=== PATIENT | female | born 1955 | race Caucasian/White ===

== ENCOUNTER 2024-08-06 13:03 | Inpatient (IN) | payer MEDICARE, SELFPAY ==
--- NOTE | ~2024-08-06 | CT_ITS ---
CLINICAL HISTORY: right flank pain CT abdomen and pelvis without contrast Comparison: None Findings: Small hiatal hernia. Hepatic steatosis. Atrophic pancreas with peripancreatic fat stranding at the pancreatic head. Cholecystectomy. No biliary duct dilatation. Spleen and adrenal glands are within normal limits. There is a small accessory splenule. No hydronephrosis or urolithiasis. No bowel obstruction, pneumoperitoneum, or pneumatosis. Pelvic contents unremarkable. Grade 1 anterolisthesis of L5 on S1 from bilateral pars defects. Degenerative changes of the spine. Ventral abdominal mesh. IMPRESSION: Peripancreatic fat stranding at the pancreatic head, concerning for acute interstitial pancreatitis. This document has been electronically signed by: Melly Moser MD on 08/06/2024 18:52:50
--- NOTE | ~2024-08-06 | XR_ITS ---
EXAMINATION: XR CHEST 1 VIEW HISTORY: fever, low o2 sat COMPARISON: There are no prior studies for comparison. FINDINGS: A single AP portable view of the chest performed at 9:43 AM is submitted. The lungs are expanded and clear. There is no pleural effusion, pneumothorax, or pulmonary vascular congestion. The heart is normal in size. There is degenerative disc disease of the spine. There are suture anchors in the right humeral head. XR/XR chest 1V IMPRESSION: Clear lungs. Electronically signed by: Beto Phipps MD 08/08/2024 10:03 AM EDT
--- NOTE | ~2024-08-06 | MR_ITS ---
EXAMINATION: MRI Abdomen without and with contrast HISTORY: pancreatitis COMPARISON: Correlation is made with a CT of the abdomen without contrast dated 08/06/2024. TECHNIQUE: Axial in and out of phase T1-weighted gradient echo, axial diffusion weighted, and axial and coronal HASTE T2 with fat saturation images were obtained through the abdomen. 3D MRCP Reconstructed and thin and thick slab images of the biliary tree were obtained. Subsequently, fat suppressed axial and coronal T1-weighted images were obtained after the intravenous administration of 9 mL Gadavist. FINDINGS: There is diffuse loss of signal intensity within the liver on opposed phase imaging, consistent with steatosis. No enhancing liver mass is identified. The hepatic and portal veins are patent. There is no intrahepatic biliary ductal dilatation. The patient is status post cholecystectomy. The common bile duct is normal in caliber. No intraluminal filling defects are identified to suggest choledocholithiasis. There is mild is infiltration of the peripancreatic fat in the region of the head, consistent with acute pancreatitis. No evidence of pancreatic necrosis. The pancreatic duct is not dilated. There is an 8 mm cystic structure in the pancreatic head which may represent an IPMN or tiny pseudocyst. There is no associated enhancement. No peripancreatic fluid collection is seen. The spleen and adrenals are unremarkable. There are tiny cysts in both kidneys. No retroperitoneal lymphadenopathy or ascites is identified in the upper abdomen. There is grade I-II spondylolisthesis of L5 on S1. MR/MR abdomen wo/w con IMPRESSION: 1. Findings consistent with acute interstitial pancreatitis involving the head as seen on CT. No peripancreatic fluid collection is seen. 2. Tiny 8 mm probable IPM and in the pancreatic head. Follow-up is recommended. 3. Hepatic steatosis. 4. No evidence of choledocholithiasis. Electronically signed by: Beto Phipps MD 08/07/2024 12:43 PM EDT
[2024-08-06 13:06] VITALS: BP 144/70; PULSE 78; RESP 18; TEMP 36.7; O2SAT 95; BMI 39.0
--- NOTE | 2024-08-06 13:13 | ED_ITS ---
HPI - General Adult General Chief complaint: Abdominal Pain Stated complaint: kidney pain Time Seen by Provider: 08/06/24 17:24 Source: patient Limitations: no limitations History of Present Illness ED Provider: Lenora Goldberg PA-C HPI narrative: 69-year-old female with a history of hypertension, hyperlipidemia, prediabetes, obesity, GERD, status post remote history of cholecystectomy, presents with the abdominal pain x1 day. Pain begins in her back, wraps around to upper abdomen, left greater than right. Unable to describe the nature of her discomfort, associated poor oral intake. Denies nausea, vomiting, fever. Denies dysuria, hematuria or history of kidney stones. Related Data Home Medications ?Medication ?Instructions ?Recorded ?Confirmed gabapentin 100 mg capsule 100 mg PO DAILY PRN pain 08/07/24 hydrochlorothiazide 25 mg tablet 25 mg PO DAILY 08/07/24 meloxicam 15 mg tablet 15 mg PO DAILY PRN pain 08/07/24 metoprolol succinate 25 mg 25 mg PO DAILY 08/07/24 tablet,extended release 24 hr paroxetine HCl 20 mg tablet 20 mg PO DAILY 08/07/24 Allergies Allergy/AdvReac Type Severity Reaction Status Date / Time aspirin Allergy Hives Verified 08/06/24 13:10 ciprofloxacin [From Cipro] Allergy Hives Verified 08/06/24 13:10 latex Allergy Hives Verified 08/06/24 13:10 Penicillins Allergy Difficulty Verified 08/06/24 13:10 Breathing Review of Systems 2 Review of Systems: Yes all other systems are reviewed and are negative Constitutional: Constitutional: Denies fatigue, Denies fever(s) and Reports poor appetite Cardiovascular: Cardiovascular: Denies chest pain and Denies dyspnea Respiratory: Respiratory: Denies cough and Denies dyspnea Gastrointestinal: Gastrointestinal: Reports abdominal pain, Denies nausea and Denies vomiting Genitourinary: Genitourinary: Denies hematuria, Denies dysuria and Denies flank pain Musculoskeletal: Musculoskeletal: Reports back pain Endocrine: Endocrine: Denies fatigue PMF Past Medical History Attestation statement: The following information was validated with the patient. Social History Social History Patient Tobacco Use Status: Never used Tobacco Smoked in Last 30 Days: No Use of substances other than those prescribed or required for medical reasons: No Advance Directives: No Advance Directives Information Provided: No Do you have a plan to hurt others: No Plan Nutrition Risks: No Nutritional Risk Physical Exam ED Vital Signs: Vital Signs - 24 hr 08/06/24 13:06 08/06/24 17:33 08/06/24 18:04 Temperature 98.0 F 97.6 F 97.8 F Pulse Rate 78 77 78 Respiratory Rate 18 16 18 Blood Pressure 144/70 H 159/81 H 156/78 H Pulse Oximetry 95 99 93 Oxygen Delivery Method Room Air Room Air Room Air 08/06/24 20:16 08/06/24 22:17 Temperature Pulse Rate 65 69 Respiratory Rate 11 L Blood Pressure 129/63 137/60 Pulse Oximetry 97 98 Oxygen Delivery Method Room Air Room Air BMI result Body Mass Index 39.0 Const Other: Alert Orientation/consciousness: patient oriented x3 Resp Effort & Inspection: normal respiratory effort Cardio Other: Normal peripheral perfusion GI Other: Abdomen is soft, nondistended, obese, moderate tenderness in upper abdomen, left greater than right, with mild involuntary guarding General: Yes no CVA tenderness Back/Spine/Pelvis Back: no CVA tenderness Skin Other: Warm dry no rash Neuro General: patient oriented x3, gait normal, no focal motor deficits and CN's II- XI intact bilaterally Psych Other: Cooperative Course Course Course Narrative: RME: 69-year-old female presents to ED for diffuse abdominal pain radiating down to her groin area. Patient states small amount of urine production. Patient denies history of UTI or kidney stones. Labs UA ordered Medications Administered Generic Name Dose Route Start Last Admin Trade Name Freq PRN Reason Stop Dose Admin Ceftriaxone Sodium 1 gm 08/06/24 23:30 08/07/24 00:15 Ceftriaxone Sodium 1 Gm Vial IVPUSH 1 gm Q24H SALAZAR Administration Hydromorphone HCl 0.5 mg 08/06/24 23:30 08/07/24 05:50 Hydromorphone Hcl 0.5 Mg/0.5 Ml Syringe IVPUSH 0.5 mg Q4H PRN Administration Breakthrough Pain Protocol Dextrose/Sodium Chloride 1,000 mls @ 100 mls/hr 08/06/24 23:30 08/07/24 00:17 D51/2ns IVCONT 100 mls/hr .Q10H SALAZAR Administration Metronidazole 500 mg in 100 mls @ 100 mls/hr 08/07/24 00:00 08/07/24 01:20 Flagyl IV Infused Q8H SALAZAR Infusion Sodium Chloride 3 ml 08/07/24 00:00 08/07/24 01:46 0.9 % Sodium Chloride Flush 3 Ml Syringe IVFLUSH Not Given QSHIFT SALAZAR Discontinued Medications Generic Name Dose Route Start Last Admin Trade Name Clyde PRN Reason Stop Dose Admin Sodium Chloride 1,000 mls @ 999 mls/hr 08/06/24 19:15 08/06/24 20:15 Ns IV 08/06/24 20:15 Infused .Q1H1M SALAZAR Infusion Morphine Sulfate 4 mg 08/06/24 19:01 08/06/24 19:13 Morphine Sulfate 4 Mg/Ml Cartridge IVPUSH 08/06/24 19:02 4 mg ONCE ONE Administration Protocol Morphine Sulfate 4 mg 08/06/24 22:14 08/06/24 22:36 Morphine Sulfate 4 Mg/Ml Cartridge IVPUSH 08/06/24 22:15 4 mg ONCE ONE Administration Protocol Ondansetron HCl 4 mg 08/06/24 22:48 08/06/24 23:17 Ondansetron Hcl 4 Mg/2 Ml Vial IVPUSH 08/06/24 22:49 4 mg ONCE ONE Administration Potassium Chloride 40 meq 08/06/24 22:48 08/06/24 23:17 Potassium Chloride Packet 20 Meq Packet PO 08/06/24 22:49 40 meq ONCE ONE Administration Medical Decision Making Medical Decision Making MDM Narrative: 69-year-old female with a history of hypertension, hyperlipidemia, prediabetes, obesity, GERD, status post remote history of cholecystectomy, presents with the abdominal pain x1 day. Pain begins in her back, wraps around to upper abdomen, left greater than right. Unable to describe the nature of her discomfort, associated poor oral intake. Denies nausea, vomiting, fever. Denies dysuria, hematuria or history of kidney stones. Problem: Age, prediabetes History: Per patient I have considered the following differential diagnoses: Choledocholithiasis, gastritis, pancreatitis, renal colic Plan: Given distribution of discomfort, I have considered underlying gastric versus pancreatic etiology as cause for symptoms. Choledocholithiasis is least likely, her cholecystectomy is remote, greater than 20 years. We will be obtaining a CT scan. Giving IV fluid and morphine for her discomfort. I also thought about renal colic, when patient presented to triage, the report seem to indicate right flank pain with radiation to the groin, however this is not the case. She also has no history and she has no related symptoms. UA was obtained in his unremarkable Labs: No leukocytosis, not anemic, potassium subtly low at 3.1, adding on a magnesium, LFTs are elevated, unclear what her baseline is, urine not infected CT abdomen and pelvis:Hepatic steatosis. Atrophic pancreas with peripancreatic fat stranding at the pancreatic head. Cholecystectomy. No biliary duct dilatation. Spleen and adrenal glands are within normal limits. There is a small accessory splenule. No hydronephrosis or urolithiasis. No bowel obstruction, pneumoperitoneum, or pneumatosis. Pelvic contents unremarkable. Grade 1 anterolisthesis of L5 on S1 from bilateral pars defects. Degenerative changes of the spine. Ventral abdominal mesh. IMPRESSION: Peripancreatic fat stranding at the pancreatic head, concerning for acute interstitial pancreatitis. Lab Data 08/07/24 05:13 08/07/24 05:13 Labs: Lab Results 08/06/24 Range/Units 13:48 WBC 8.6 (4.8-10.8) X10*3/uL RBC 4.63 (4.20-5.50) X10*6/uL Hgb 13.8 (12.0-16.0) g/dl Hct 41.4 (37.0-47.0) % MCV 89.4 (80.0-98.0) fL MCH 29.8 (27.0-33.0) pg MCHC 33.3 (31.0-35.0) g/dl RDW 13.9 (11.0-16.0) % Plt Count 226 (160-400) X10*3/uL MPV 11.1 (9.4-12.3) fL Immature Gran % (Auto) 0.3 (0.0-0.4) % Neut % (Auto) 70.1 (45-73) % Lymph % (Auto) 20.6 (20-40) % [place] % (Auto) 8.1 (2-11) % Eos % (Auto) 0.6 (0-4) % Baso % (Auto) 0.3 (0-2) % Lymph # (Auto) 1.8 (1.2-4.9) X10*3/uL [place] # (Auto) 0.7 (0.1-1.2) X10*3/uL Eos # (Auto) 0.1 (0.0-0.4) X10*3/uL Baso # (Auto) 0.0 (0.0-0.2) X10*3/uL Abs Immat Gran (auto) 0.03 (0.00-0.03) X10*3/uL Absolute Neuts (auto) 6.0 (2.0-8.3) x10*3/uL Absolute Nucleated RBC 0.000 (0.0-0.012) X10*3/uL Nucleated RBC % (auto) 0.0 (0.0-0.2) /100WBC PT 11.8 (10.9-12.4) SEC INR 1.0 (0.9-1.1) APTT 26.8 (26.0-36.8) SEC Sodium 141 (135-145) mmol/L Potassium 3.1 L (3.3-5.1) mmol/L Chloride 104 (96-108) mmol/L Carbon Dioxide 29 (22-29) mmol/L Anion Gap 11 L (12-20) BUN 11 (9-16) mg/dL Creatinine 0.73 (0.5-1.4) mg/dL Estim Creat Clear Calc 70.0 Estimated GFR > 60 Random Glucose 135 H (60-115) mg/dL Calcium 9.6 (8.4-10.2) mg/dL Magnesium 1.8 (1.6-2.6) mg/dL Total Bilirubin 1.1 H (0.0-1.0) mg/dL AST 56 H (5-31) U/L ALT 54 H (0-31) U/L Alkaline Phosphatase 124 H (39-117) U/L Troponin I High Sens 3.3 (<3.5-17.0) ng/L Total Protein 7.1 (6.5-8.0) g/dL Albumin 4.1 (3.5-5.0) g/dL Lipase 23 (8-78) U/L Urine Color Yellow Urine Appearance Clear Urine pH 8.5 (5.0-9.0) Ur Specific [place] 1.010 (1.005-1.025) Urine Protein Negative (Neg-Trace) mg/dL Urine Glucose (UA) Negative (Negative) mg/dL Urine Ketones Trace (Negative) mg/dL Urine Blood Negative (Negative) Urine Nitrite Negative (Negative) Ur Leukocyte Esterase Negative (Negative) Discharge Plan Discharge Clinical Impression: Acute hypokalemia Pancreatitis Qualifiers: Chronicity: acute Pancreatitis type: unspecified pancreatitis type Acute pancreatitis complication: unspecified Qualified Code(s): K85.90 - Acute pancreatitis without necrosis or infection, unspecified Patient Disposition: Admitted As Inpatient Interventions: Admission Worksheet (ED) Last Done: 08/07/24 06:37
--- NOTE | 2024-08-06 13:15 | ECG_ITS ---
Test Reason : ABD PAIN Blood Pressure : */* mmHG Vent. Rate : 73 BPM Atrial Rate : 73 BPM P-R Int : 134 ms QRS Dur : 90 ms QT Int : 422 ms P-R-T Axes : 17 -3 27 degrees QTcB Int : 464 ms Normal sinus rhythm Normal ECG No previous ECGs available Referred By: Salvador Vickers Electronically Signed By: Chu Ndiaye
[2024-08-06 13:51] LABS: MANUAL DIFF FLAG NO
[2024-08-06 13:54] LABS: Appearance Urine Clear; Basophils Percent Auto 0.3 % (0-2); Color Urine Yellow; Eosinophils Absolute Auto 0.1 X10*3/uL (0.0-0.4); Eosinophils Percent Auto 0.6 % (0-4); Glucose Urine UA Negative (Negative); Hematocrit 41.4 % (37.0-47.0); Hemoglobin 13.8 g/dl (12.0-16.0); Imm Gran Abs Auto 0.03 X10*3/uL (0.00-0.03); Imm Gran Pct Auto 0.3 % (0.0-0.4); Leukocyte Esterase Urine Negative (Negative); Lymphocytes Absolute Auto 1.8 X10*3/uL (1.2-4.9); Lymphocytes Percent Auto 20.6 % (20-40); Mean Corpuscular HGB Conc 33.3 g/dl (31.0-35.0); Mean Corpuscular Hemoglobin 29.8 pg (27.0-33.0); Mean Corpuscular Volume 89.4 fL (80.0-98.0); Mean Platelet Volume 11.1 fL (9.4-12.3); Monocytes Absolute Auto 0.7 X10*3/uL (0.1-1.2); Monocytes Percent Auto 8.1 % (2-11); Neutrophils Percent Auto 70.1 % (45-73); Nitrite Urine Negative (Negative); PH 8.5 (5.0-9.0); Platelet Count 226 X10*3/uL (160-400); Red Blood Count 4.63 X10*6/uL (4.20-5.50); Red Cell Distribution Width 13.9 % (11.0-16.0); Urine Blood Negative (Negative); Urine Ketones Trace mg/dL (Negative); Urine Protein Negative (Neg-Trace); White Blood Count 8.6 X10*3/uL (4.8-10.8)
[2024-08-06 14:01] LABS: Prothrombin Time 11.8 SEC (10.9-12.4)
[2024-08-06 14:04] LABS: Partial Thromboplastin Time 26.8 SEC (26.0-36.8)
[2024-08-06 14:14] LABS: Alanine Aminotransferase 54 U/L (0-31); Albumin Level 4.1 g/dL (3.5-5.0); Alkaline Phosphatase 124 U/L (39-117); Anion Gap 11 (12-20); Aspartate Amino Transferase 56 U/L (5-31); Bilirubin Total 1.1 mg/dL (0.0-1.0); Blood Urea Nitrogen 11 mg/dL (9-16); Calcium 9.6 mg/dL (8.4-10.2); Carbon Dioxide 29 mmol/L (22-29); Chloride 104 mmol/L (96-108); Estimated Glomerular Filt Rate > 60; Glucose Random 135 mg/dL (60-115); Potassium 3.1 mmol/L (3.3-5.1); Sodium 141 mmol/L (135-145); Total Protein 7.1 g/dL (6.5-8.0)
[2024-08-06 14:17] LABS: Troponin-I High Sensitivity 3.3 ng/L (<3.5-17.0)
[2024-08-06 17:33] VITALS: BP 159/81; PULSE 77; RESP 16; TEMP 36.4; O2SAT 99
--- NOTE | 2024-08-06 17:33 | PC.NURSE ---
a&ox4. vss and up to date pt presents to the ED c/o right sided flank pain radiating to across entire abdomen. pt reports nausea/nonbloody vomiting/chills x yesterday w/ associated decreased urine output. pt reports that it feels as if her bladder is not fully emptying. pt otherwise denies any diarrhea/urinary sx. pt also reports increased heavy lifting helping mother move. labs/urine obtained/sent to lab in triage. bladder scan obtained upon arrival to main ED displaying 59ml. pt seen by provider/aware of plan of care. pt pending CT to be completed at this time. on RA w/o difficulty. no sob/wob noted. respirations even/unlabored. plan of care ongoing. call [facility] placed within reach.
[2024-08-06 18:04] VITALS: BP 156/78; PULSE 78; RESP 18; TEMP 36.6; O2SAT 93
--- NOTE | 2024-08-06 18:17 | PC.NURSE ---
pt to CT at this time.
[2024-08-06] MEDS: 0.9 % Sodium Chloride 1,000 ML 999 ML IV (19:12)
[2024-08-06] MEDS: Morphine Sulfate 4 MG/ML CARTRIDGE IVPUSH ×2 (19:13→22:36)
[2024-08-06 19:31] LABS: Lipase 23 U/L (8-78)
--- NOTE | 2024-08-06 19:51 | PC.NURSE ---
this rn assumed care of pt, pt resting in stretcher, no acute distress noted. pt offers no complaints at this time.
[2024-08-06 20:16] VITALS: BP 129/63; PULSE 65; O2SAT 97
--- OUTSIDE RECORDS SUMMARY | 2024-08-06 21:23 | XMS_ITS | Continuity of Care Document ---
Author Organization [facility] Address [address] [address] Phone Care Team Providers Care Silver Wrapper Name Role Phone Nick Cedillo MD Unavailable Unavailable Allergies, Adverse Reactions, Alerts Substance Reaction Status Criticality vancomycin Active No Information PENICILLIN Active No Information latex Active No Information CIPROFLOXACIN HCL Active No Informa tion ciprofloxacin Active No Information Medications Medication Instructions Dosage Effective Dates (start - stop) Status Comments MELOXICAM (unknown strength) Not Available - Active BUPROPION HCL (unknown strength) Not Available - Active BIOTIN (unknown strength) Not Available - Active FOLIC ACID (unknown strength) Not Available - Active VITAMIN D3 (unknown strength) Not Available - Active BUPROPION HCL (unknown strength) Not Available - Active Procedures Procedure Date EYE EXAM, NEW PATIENT REFRACTION EYE EXAM WITH PHOTOS TOBACCO NON-USER Advance Directives Directive Yes / No Effective Date File Name No Information Encounters Encounter Description Practice Location Reason(s) For Visit Diagnoses Date Provider Providers Copied on Encounter [facility], [address] [facility], [place], [place], [id number], [place] tel:[phone] [facility] New patient medical exam (chief complaint) Age-related nuclear cataract, bilateralOpen angle with borderline findings, low risk, bilateral Jun- 9 Mamadou Romero. [address] [facility], [place], [place], [id number] , [place]. tel:[phone] Family History Family Member Type Diagnosis Age At Onset Mother Problem (finding) Diabetes mellitus Mother Problem (finding) glaucoma Mother Problem (finding) hypertension Payers Payer name Insurance type Covered alliance party ID Authoriza phuong(johnny Sabillon [id number] Social History Type Description Quantity Date Captured Comments Alcohol Use Details Unknown Caffeine Use Details Unknown Tobacco Use Status Current non-smoker 19 Smoking Status Never smoker Non-Smoking Tobacco Use Details : No Details Available : No Details Available Sex Female Chief Complaint And Reason For Visit From encounter dated '07/05/2018 13:30'. New patient medical exam (chief complaint). Description: 63 year old female presents today for a medical eye exam. Patient has not had a complete eye exam since two years ago and she obtained her current bifocal lens glasses, however, she has noted a slight gradual progression in her distant clarity OU, OS > OD , especially with driving at night with glare for the lastone year. History of floaters OU for years without progression. No flashes, diplopia or ocular pain. She has worn contact lenses in the past and may be interested in being updated for them or she would like to know about possibly having a Lasik Consult?? She is not using artificial tears OU. Familyhistory of Glaucoma, Mother. Reason For Referral Reason For Referral No Information History Of Present Illness Encounter Date Complaint History Of Prese nt Illness New patient medical exam 63 year old female presents today for a medical eye exam. Patient has not had a complete eye exam since two years ago and she obtained her current bifocal lens glasses, however, she has noted a slight gradual progression in her distant clarity OU, OS > OD , especially with driving at night with glare for the last one year. History of floaters OU for years without progression. No flashes, diplopia or ocular pain. She has worn contact lenses in the past and may be interested in being updated for them or she would like to know about possibly having a Lasik Consult?? She is not using artificial tears OU. Family history of Glaucoma, Mother. Functional Status Date Functional Assessmen t No Information Instructions Date Instruction Additional Infor eduardaion ME 1 yr Related to Age-r elated nuclear cataract, bilateral Impression/Plan Related to Age-r elated nuclear cataract, bilateral Impression/Plan Related to Open angle with borderline findings, low risk, bilateral Assessments Type Assessment Date assessment Age-related nuclear cataract, bi lateral impression Age-related nuclear cataract, bi lateral: H25.13 assessment Open angle with borderline findi ngs, low risk, bilateral impression Open angle with bord imer findings, low risk, bilateral: H40.013. Positive family history (Mother). IOP is WNL. Mild cup to disk asymmetry but appears WNL Patient Care Teams Name Effective Dates (start - stop) Status Members No Information
[2024-08-06 22:17] VITALS: BP 137/60; PULSE 69; RESP 11; O2SAT 98
[2024-08-06] MEDS: ondansetron HCL 4 MG/2 ML VIAL IVPUSH (23:17)
[2024-08-06] MEDS: Potassium Chloride Packet 20 MEQ PACKET 40 MEQ PO (23:17)
[2024-08-06 23:18] LABS: Magnesium 1.8 mg/dL (1.6-2.6)
--- NOTE | 2024-08-06 23:33 | PM.IMHP ---
History of Present Illness Date of Service: 08/06/24 Chief Complaint: abdominal pain 69-year-old female with a past medical history of HTN, HLD, anxiety, depression presented to the hospital today with a chief complaint of abdominal pain. Patient reported that since yesterday she has been having abdominal pain, starts around the back and radiates to the front to the epigastrium. Has been having nausea and vomiting. Denies any diarrhea. Reports she has had an episode of fever yesterday. Patient denies any chest pain or palpitations at the time of my interview. Denies any urinary symptoms. Reports that she has abdominal pain but slightly better than yesterday. Denies any numbness tingling or focal weakness. Review of all other systems is negative except mentioned above Patient denies any toxic habits except for a very occasional alcohol use. Denies any recent alcohol use. ER course: Per ER team, patient noted epigastric tenderness; lipase is normal limits; CT abdomen pelvis shows findings concerning for pancreatitis. Also noted a slightly elevated liver enzymes. PMFSH Social History Smoked in Last 30 Days: No Use of substances other than those prescribed or required for medical reasons: No Advance Directives: No Advance Directives Information Provided: No Do you have a plan to hurt others: No Plan Meds Allergies Allergy/AdvReac Type Severity Reaction Status Date / Time aspirin Allergy Hives Verified 08/06/24 13:10 ciprofloxacin [From Cipro] Allergy Hives Verified 08/06/24 13:10 latex Allergy Hives Verified 08/06/24 13:10 Penicillins Allergy Difficulty Verified 08/06/24 13:10 Breathing Active Medications: Current Medications Hydromorphone HCl (Hydromorphone Hcl 0.5 Mg/0.5 Ml Syringe) 0.5 mg IVPUSH Q4H PRN; Protocol PRN Reason: Breakthrough Pain Dextrose/Sodium Chloride (D51/2ns) 1,000 mls @ 100 mls/hr IVCONT .Q10H ASLAZAR Physical Exam Vital Signs and Narrative: Vital Signs: Last Vital Signs Temp 97.8 F 08/06/24 18:04 Pulse 69 08/06/24 22:17 Resp 11 L 08/06/24 22:17 BP 137/60 08/06/24 22:17 Pulse Ox 98 08/06/24 22:17 O2 Del Method Room Air 08/06/24 22:17 BMI result Body Mass Index 39.0 Gen: Appears be in no acute distress HEENT: NCAT, Moist mucosa. Pulmonary: Vesicular breath sounds, fair air entry CVS: Normal S1-S2 Abdomen: BS+, Soft, Tender in the epigastrium, no guarding no rigidity Extremities: Warm well perfused Neuro: Alert and awake. Results Labs 08/06/24 13:48 08/06/24 13:48 Labs: Laboratory Results - last 24 hr 08/06/24 13:48 MCV 89.4 MCH 29.8 MCHC 33.3 RDW 13.9 Plt Count 226 MPV 11.1 Immature Gran % (Auto) 0.3 Neut % (Auto) 70.1 Lymph % (Auto) 20.6 [place] % (Auto) 8.1 Eos % (Auto) 0.6 Baso % (Auto) 0.3 Lymph # (Auto) 1.8 [place] # (Auto) 0.7 Eos # (Auto) 0.1 Baso # (Auto) 0.0 Abs Immat Gran (auto) 0.03 Absolute Neuts (auto) 6.0 Absolute Nucleated RBC 0.000 Nucleated RBC % (auto) 0.0 PT 11.8 INR 1.0 APTT 26.8 Anion Gap 11 L Estim Creat Clear Calc 70.0 Estimated GFR > 60 Random Glucose 135 H Calcium 9.6 Magnesium 1.8 Total Bilirubin 1.1 H AST 56 H ALT 54 H Alkaline Phosphatase 124 H Total Protein 7.1 Albumin 4.1 Lipase 23 Urine Color Yellow Urine Appearance Clear Urine pH 8.5 Ur Specific [place] 1.010 Urine Protein Negative Urine Glucose (UA) Negative Urine Ketones Trace Urine Blood Negative Urine Nitrite Negative Ur Leukocyte Esterase Negative Assessment and Plan (1) Pancreatitis: Qualifiers: Pancreatitis type: unspecified pancreatitis type Acute pancreatitis complication: unspecified Chronicity: acute Qualified Code(s): K85.90 - Acute pancreatitis without necrosis or infection, unspecified Status: Acute Plan 69-year-old female with a past medical history of HTN, HLD, anxiety, depression presented to the hospital today with a chief complaint of abdominal pain. noted acute pancreatitis. Acute pancreatitis: Patient denies any alcohol use. Calcium within normal limits. Patient has prior history of cholecystectomy. No biliary ductal dilatation on the current CT scan. CT abdomen pelvis showed atrophic pancreas with peripancreatic fat stranding at the pancreatic head concerning for acute interstitial pancreatitis. Will obtain MRI abdomen Lipid panel Pain control GI consult patient's home medication hydrochlorothiazide could be contributory-will hold Transaminitis: Patient does report having an episode of fever last night. Will empirically cover with ceftriaxone and Flagyl until MRI Follow-up cultures Trend liver enzymes We will also obtain acute hepatitis panel hypertension: Continue home metoprolol DVT prophylaxis: SubQ heparin Code status: Full code Quality Stroke Does the patient have a stroke diagnosis?: No VTE Prior VTE?: No VTE Risk Level:: Medical - moderate - high VTE Device Contraindication: Treatment Not Indicated VTE Drug Contraindication: N/A - Med Ordered
[2024-08-07] MEDS: cefTRIAXone sodium 1 GM VIAL IVPUSH (00:15)
[2024-08-07] MEDS: Dextrose 5 % and 0.45 % NaCl 1,000 ML 100 ML IVCONT ×2 (00:17→09:03)
[2024-08-07] MEDS: metroNIDAZOLE/NS 500 MG/100 ML PIGGYBACK 100 MG IV ×2 (00:19→09:03)
[2024-08-07 00:59] VITALS: BP 104/50; PULSE 75; RESP 16; TEMP 36.3; O2SAT 93
[2024-08-07 04:24] VITALS: BP 102/42; PULSE 72; RESP 16; TEMP 36.3; O2SAT 96
[2024-08-07 05:24] LABS: MANUAL DIFF FLAG NO
[2024-08-07 05:30] LABS: Basophils Percent Auto 0.4 % (0-2); Eosinophils Absolute Auto 0.2 X10*3/uL (0.0-0.4); Eosinophils Percent Auto 2.4 % (0-4); Hematocrit 34.8 % (37.0-47.0); Hemoglobin 11.6 g/dl (12.0-16.0); Imm Gran Abs Auto 0.03 X10*3/uL (0.00-0.03); Imm Gran Pct Auto 0.4 % (0.0-0.4); Lymphocytes Absolute Auto 1.7 X10*3/uL (1.2-4.9); Lymphocytes Percent Auto 24.1 % (20-40); Mean Corpuscular HGB Conc 33.3 g/dl (31.0-35.0); Mean Corpuscular Hemoglobin 30.1 pg (27.0-33.0); Mean Corpuscular Volume 90.2 fL (80.0-98.0); Mean Platelet Volume 11.2 fL (9.4-12.3); Monocytes Absolute Auto 0.9 X10*3/uL (0.1-1.2); Monocytes Percent Auto 13.1 % (2-11); Neutrophils Absolute Auto 4.2 x10*3/uL (2.0-8.3); Neutrophils Percent Auto 59.6 % (45-73); Platelet Count 204 X10*3/uL (160-400); Red Blood Count 3.86 X10*6/uL (4.20-5.50); Red Cell Distribution Width 14.3 % (11.0-16.0); White Blood Count 7.1 X10*3/uL (4.8-10.8)
[2024-08-07 05:49] LABS: Albumin Level 3.3 g/dL (3.5-5.0); Alkaline Phosphatase 136 U/L (39-117); Anion Gap 11 (12-20); Aspartate Amino Transferase 217 U/L (5-31); Bilirubin Total 1.2 mg/dL (0.0-1.0); Blood Urea Nitrogen 12 mg/dL (9-16); Calcium 8.8 mg/dL (8.4-10.2); Carbon Dioxide 27 mmol/L (22-29); Chloride 109 mmol/L (96-108); Cholesterol 119 mg/dL (<200); Estimated Glomerular Filt Rate > 60; Glucose Random 114 mg/dL (60-115); HDL Cholesterol 59 mg/dL (>40); LDL Cholesterol Calculated 49 mg/dL (<100); Potassium 3.3 mmol/L (3.3-5.1); Sodium 144 mmol/L (135-145); Triglycerides 56 mg/dL (<150)
[2024-08-07 05:50] VITALS: RESP 18
[2024-08-07] MEDS: HYDROmorphone HCl 0.5 MG/0.5 ML SYRINGE IVPUSH ×2 (05:50→17:10)
[2024-08-07 06:03] LABS: HBc Num1 0.06 S/CO (0.00-0.79); HBsAGNum1 0.28 S/CO (0.00-0.99); Hepatitis A Antibody IgM 0.18 Index (0-0.79); Hepatitis B Core Antibody Nonreactive (Nonreactive); Hepatitis B Surface Antigen Negative (Negative); ~HepC Num1 0.06 S/CO (0.00-0.79); ~Hepatitis A Antibody IgM Nonreactive (Nonreactive); ~Hepatitis B Surface Antibody NONREACTIVE (Nonreactive); ~Hepatitis C Antibody Nonreactive (Nonreactive)
[2024-08-07 08:03] LABS: Alanine Aminotransferase 138 U/L (0-31)
[2024-08-07 09:02] VITALS: BP 101/59; PULSE 80; RESP 18; TEMP 36.5; O2SAT 93
[2024-08-07] MEDS: Docusate Sodium 100 MG CAPSULE PO ×2 (09:06→20:21)
[2024-08-07] MEDS: Heparin Sodium,Porcine 5,000 UNIT/ML VIAL 5000 UNIT SUBCUT ×2 (09:08→17:06)
--- NOTE | 2024-08-07 10:35 | PHA.MEDREC ---
Addendum entered by Lashawn Mi RPh 08/07/24 11:06: reviewed by [facility]. Original Note: Pharmacy Consult ? Medication Reconciliation Pharmacy has completed the medication reconciliation. Spoke to patent to confirm med list. Patient had a list of medications on her phone. Patient states she is no longer taking HCTZ 25 mg. Patient says she is taking Atrovastatin 20 mg daily ,however i do see any claims for. Patient states she is from [place] and she uses [facility] or [facility] for her medications.
[2024-08-07] MEDS: gadobutroL 10 ML VIAL IVPUSH (12:17)
--- NOTE | 2024-08-07 12:53 | CONS_ITS ---
DATE OF SERVICE: 08/07/2024 REFERRING PHYSICIAN: Dr. Keen REASON FOR CONSULTATION: Pancreatitis. HISTORY OF PRESENT ILLNESS: The patient is a pleasant 69-year-old woman who was admitted to the hospital after presenting to the emergency room with abdominal pain. The symptoms began the day before admission with epigastric pain radiating into the back and sides. There was associated nausea and vomiting. She had a subjective fever and presented to the emergency room. She denies any recent unusual ingestions or prior history of pancreatitis. She does not drink alcohol. She is status post cholecystectomy approximately 20 to 25 years ago. Evaluation in the emergency department was remarkable for mild elevation of her liver function tests. Lipase was normal. CT imaging showed a normal common bile duct and changes consistent with pancreatitis involving the pancreatic head. She is scheduled for MRI imaging. PAST MEDICAL HISTORY: 1. Hypertension. 2. Hyperlipidemia. 3. Anxiety/depression. 4. Cholecystectomy. 5. Appendectomy. 6. section. CURRENT MEDICATIONS: Her current medication list is reviewed in the chart. ALLERGIES: THERE ARE MULTIPLE MEDICATION ALLERGIES, WHICH ARE REVIEWED. FAMILY HISTORY: This is reviewed with the patient and is noncontributory. SOCIAL HISTORY: There is no current tobacco, alcohol, or substance abuse. REVIEW OF SYSTEMS: SKIN: No pruritus. HEENT: Negative. CARDIOPULMONARY: No shortness of breath or chest pain. GASTROINTESTINAL: As above. GENITOURINARY: Negative. NEUROPSYCHIATRIC: Negative. PHYSICAL EXAMINATION: GENERAL: Shows a pleasant female, lying comfortably in bed. VITAL SIGNS: Reviewed in electronic medical record and are stable. SKIN: Anicteric. HEENT: Shows no scleral icterus. NECK: Without lymphadenopathy or thyromegaly. LUNGS: Clear. HEART: Shows regular rate and rhythm. S1, S2. No murmur. ABDOMEN: Soft. There is tenderness to palpation in the epigastric and left upper quadrant area. EXTREMITIES: Without edema. LABORATORY STUDIES AND IMAGING STUDIES: Reviewed. IMPRESSION: Abdominal pain with changes of pancreatitis on imaging. The etiology for this is not clear. She has remote history of cholecystectomy, which would make primary common bile duct stones less likely, although possible and agreed with obtaining an MRI for further evaluation. She had been on hydrochlorothiazide and I agree with discontinuing this as this can be associated with pancreatitis. I agree treating her with pain medications, antiemetics, and IV fluids and her diet can be gradually advanced as she improves. We will await the results of MR imaging. Thanks for asking me to see her. I will follow her in the hospital with you. MD CLAUDINE Kulkarni/YUSEF / [id number]
--- NOTE | 2024-08-07 13:34 | MHC.CM.PN ---
PT LIVES WITH IN [place] THEY WERE HERE TAKING CARE OF HER MOTHER PT IS INDEPENDENT DC PLAN HOME N/S
--- NOTE | 2024-08-07 14:39 | P.PNIM_ITS ---
Subjective Subjective Date of Service: 08/07/24 Review of Systems Follow up pancreatitis No nausea, vomiting, diarrhea Still with abdominal pain Physical Exam 2 Vital Signs: Vital Signs: Last Vital Signs Temp 97.7 F 08/07/24 09:02 Pulse 80 08/07/24 09:02 Resp 18 08/07/24 09:02 BP 101/59 L 08/07/24 09:02 Pulse Ox 93 08/07/24 09:02 O2 Del Method Room Air 08/07/24 09:02 BMI result Body Mass Index 39.0 Appearing in no acute distress lung sounds are clear to auscultation heart regular rate rhythm, clear S1, S2 positive bowel sounds, abdomen is soft, tender to left upper quadrant neuro patient is alert x3, no focal deficits Objective Data Active Medications Calcium Carbonate (Calcium Carbonate 750 Mg Tab.Chew) 750 mg PO Q4H PRN PRN Reason: Heartburn Ceftriaxone Sodium (Ceftriaxone Sodium 1 Gm Vial) 1 gm IVPUSH Q24H [facility] Last Admin: 08/07/24 00:15 Dose: 1 gm Documented By: JOSE CARLOS Docusate Sodium (Docusate Sodium 100 Mg Capsule) 100 mg PO BID [facility] Last Admin: 08/07/24 09:06 Dose: 100 mg Documented By: MAREK Heparin Sodium (Porcine) (Heparin Sodium,Porcine 5,000 Unit/Ml Vial) 5,000 unit SUBCUT Q8H [facility] Last Admin: 08/07/24 09:08 Dose: 5,000 unit Documented By: MAREK Hydromorphone HCl (Hydromorphone Hcl 0.5 Mg/0.5 Ml Syringe) 0.5 mg IVPUSH Q4H PRN; Protocol PRN Reason: Breakthrough Pain Last Admin: 08/07/24 05:50 Dose: 0.5 mg Documented By: JOSE CARLOS Dextrose/Sodium Chloride (D51/2ns) 1,000 mls @ 100 mls/hr IVCONT .Q10H [facility] Last Admin: 08/07/24 09:03 Dose: 100 mls/hr Documented By: MAREK Metronidazole (Flagyl) 500 mg in 100 mls @ 100 mls/hr IV Q8H [facility] Last Infusion: 08/07/24 10:04 Dose: Infused Documented By: MAREK Magnesium Hydroxide (Milk Of Magnesia 30 Ml Oral.Susp) 30 ml PO DAILY PRN PRN Reason: Constipation Melatonin (Melatonin 3 Mg Tablet) 6 mg PO BEDTIME PRN PRN Reason: Insomnia Senna (Sennosides 8.6 Mg Tablet) 17.2 mg PO BEDTIME [facility] Sodium Chloride (0.9 % Sodium Chloride Flush 3 Ml Syringe) 3 ml IVFLUSH QSHIFT [facility] Last Admin: 08/07/24 08:59 Dose: Not Given Documented By: MAREK Non-Admin Reason: IV Running Labs 08/07/24 05:13 08/07/24 05:13 Labs: Laboratory Results - last 24 hr 08/06/24 08/07/24 13:48 05:13 MCV 90.2 MCH 30.1 MCHC 33.3 RDW 14.3 Plt Count 204 MPV 11.2 Immature Gran % (Auto) 0.4 Neut % (Auto) 59.6 Lymph % (Auto) 24.1 Banks % (Auto) 13.1 H Eos % (Auto) 2.4 Baso % (Auto) 0.4 Lymph # (Auto) 1.7 Banks # (Auto) 0.9 Eos # (Auto) 0.2 Baso # (Auto) 0.0 Abs Immat Gran (auto) 0.03 Absolute Neuts (auto) 4.2 Absolute Nucleated RBC 0.000 Nucleated RBC % (auto) 0.0 Anion Gap 11 L Estim Creat Clear Calc 70.0 Estimated GFR > 60 Random Glucose 114 Calcium 8.8 D Magnesium 1.8 Total Bilirubin 1.2 H AST 217 H ALT 138 H Alkaline Phosphatase 136 H Total Protein 6.0 L Albumin 3.3 L Triglycerides 56 Cholesterol 119 LDL Cholesterol, Calc 49 HDL Cholesterol 59 Lipase 23 Hepatitis A IgM Ab Nonreactive Hep Bs Antigen Negative Hep Bs Antibody NONREACTIVE Hep B Core Total Ab Nonreactive Hepatitis C Ab (EIA) Nonreactive Assessment and Plan (1) Pancreatitis: Status: Acute Plan 69-year-old female with a past medical history of HTN, HLD, anxiety, depression presented to the hospital today with a chief complaint of abdominal pain. noted acute pancreatitis. Acute pancreatitis Patient denies any alcohol use. Calcium within normal limits. Patient has prior history of cholecystectomy. No biliary ductal dilatation on the current CT scan. Abdominal MRI showing acute interstitial pancreatitis, hepatic steatosis with no evidence of choledocholithiasis Lipid panel wnl Pain control IV fluids Clear diet GI consult> treat symptomatically patient's home medication hydrochlorothiazide could be contributory-will hold Transaminitis Follow-up cultures Trend liver enzymes hepatitis panel neg Hypertension Continue home metoprolol DVT prophylaxis: SubQ heparin Code status: Full code Quality Stroke Does the patient have a stroke diagnosis?: No VTE Prior VTE?: No VTE Risk Level:: Medical - moderate - high VTE Device Contraindication: Treatment Not Indicated VTE Drug Contraindication: N/A - Med Ordered
[2024-08-07 15:24] VITALS: BP 119/59; PULSE 73; RESP 18; TEMP 36.9; O2SAT 92
[2024-08-07 19:43] VITALS: BP 110/57; PULSE 67; RESP 18; TEMP 36.8; O2SAT 93
[2024-08-07] MEDS: Sennosides 8.6 MG TABLET 17.2 MG PO (20:21)
[2024-08-07] MEDS: Melatonin 3 MG TABLET 6 MG PO (20:21)
[2024-08-07] MEDS: diphenhydrAMINE HCL 25 MG CAPSULE PO (20:58)
[2024-08-08] MEDS: Dextrose 5 % and 0.45 % NaCl 1,000 ML 100 ML IVCONT ×2 (00:08→09:38)
[2024-08-08] MEDS: HYDROmorphone HCl 0.5 MG/0.5 ML SYRINGE IVPUSH ×3 (00:17→22:37)
[2024-08-08] MEDS: Heparin Sodium,Porcine 5,000 UNIT/ML VIAL 5000 UNIT SUBCUT ×3 (00:18→18:12)
[2024-08-08 03:20] VITALS: BP 125/63; PULSE 66; RESP 16; TEMP 36.9; O2SAT 94
[2024-08-08] MEDS: Omeprazole 20 MG CAPSULE.DR PO (06:24)
[2024-08-08 06:42] VITALS: BP 116/64; PULSE 96; RESP 16; TEMP 36.6; O2SAT 92
--- NOTE | 2024-08-08 08:15 | HO.PM.IMPN ---
Subjective Subjective Date of Service: 08/08/24 Review of Systems Follow up pancreatitis No nausea, vomiting, diarrhea Still with abdominal pain Physical Exam Vital Signs: Vital Signs: Last Vital Signs Temp 98 F 08/08/24 06:42 Pulse 96 08/08/24 06:42 Resp 16 08/08/24 06:42 BP 116/64 08/08/24 06:42 Pulse Ox 92 08/08/24 06:42 O2 Del Method Room Air 08/08/24 06:42 BMI result Body Mass Index 39.0 Appearing in no acute distress lung sounds are clear to auscultation heart regular rate rhythm, clear S1, S2 positive bowel sounds, abdomen is soft, nontender neuro patient is alert x3, no focal deficits Objective Data Active Medications Atorvastatin Calcium (Atorvastatin Calcium 20 Mg Tablet) 20 mg PO DAILY [facility] Calcium Carbonate (Calcium Carbonate 750 Mg Tab.Chew) 750 mg PO Q4H PRN PRN Reason: Heartburn Diphenhydramine HCl (Diphenhydramine Hcl 25 Mg Capsule) 25 mg PO Q6H PRN PRN Reason: Itching Last Admin: 08/07/24 20:58 Dose: 25 mg Documented By: SCOTTIE Docusate Sodium (Docusate Sodium 100 Mg Capsule) 100 mg PO BID [facility] Last Admin: 08/07/24 20:21 Dose: 100 mg Documented By: SCOTTIE Famotidine (Famotidine 20 Mg Tablet) 20 mg PO DAILY [facility] Heparin Sodium (Porcine) (Heparin Sodium,Porcine 5,000 Unit/Ml Vial) 5,000 unit SUBCUT Q8H [facility] Last Admin: 08/08/24 00:18 Dose: 5,000 unit Documented By: SCOTTIE Hydromorphone HCl (Hydromorphone Hcl 0.5 Mg/0.5 Ml Syringe) 0.5 mg IVPUSH Q4H PRN; Protocol PRN Reason: Breakthrough Pain Last Admin: 08/08/24 00:17 Dose: 0.5 mg Documented By: SCOTTIE Dextrose/Sodium Chloride (D51/2ns) 1,000 mls @ 100 mls/hr IVCONT .Q10H [facility] Last Admin: 08/08/24 00:08 Dose: 100 mls/hr Documented By: SCOTTIE Magnesium Hydroxide (Milk Of Magnesia 30 Ml Oral.Susp) 30 ml PO DAILY PRN PRN Reason: Constipation Melatonin (Melatonin 3 Mg Tablet) 6 mg PO BEDTIME PRN PRN Reason: Insomnia Last Admin: 08/07/24 20:21 Dose: 6 mg Documented By: SCOTTIE Metoprolol Succinate (Metoprolol Succinate Er 25 Mg Tab.Er.24h) 25 mg PO DAILY [facility]; Protocol Omeprazole (Omeprazole 20 Mg Capsule.Dr) 20 mg PO DAILY@0630 [facility] Last Admin: 08/08/24 06:24 Dose: 20 mg Documented By: MCTMichael Paroxetine HCl (Paroxetine Hcl 20 Mg Tablet) 20 mg PO DAILY [facility] Senna (Sennosides 8.6 Mg Tablet) 17.2 mg PO BEDTIME [facility] Last Admin: 08/07/24 20:21 Dose: 17.2 mg Documented By: MCTMichael Sodium Chloride (0.9 % Sodium Chloride Flush 3 Ml Syringe) 3 ml IVFLUSH QSHIFT [facility] Last Admin: 08/08/24 03:41 Dose: Not Given Documented By: SCOTTIE Non-Admin Reason: IV Running Labs 08/08/24 09:34 08/08/24 09:34 Microbiology Microbiology Results: Microbiology 08/07/24 00:09 Blood Culture - Preliminary Blood - Venous No growth after 24 hours. 08/07/24 00:10 Blood Culture - Preliminary Blood - Venous No growth after 24 hours. Assessment and Plan (1) Pancreatitis: Status: Acute Plan 69-year-old female with a past medical history of HTN, HLD, anxiety, depression presented to the hospital today with a chief complaint of abdominal pain. noted acute pancreatitis. Fever unknown source cxr neg no leukocytosis ua and RPP pending Acute pancreatitis Patient denies any alcohol use. Calcium within normal limits. Patient has prior history of cholecystectomy. No biliary ductal dilatation on the current CT scan. Abdominal MRI showing acute interstitial pancreatitis, hepatic steatosis with no evidence of choledocholithiasis Lipid panel wnl Pain control IV fluids advance diet GI consult> treat symptomatically patient's home medication hydrochlorothiazide could be contributory-will hold Transaminitis neg blood cx Trend liver enzymes hepatitis panel neg Hypertension Continue home metoprolol DVT prophylaxis: SubQ heparin Code status: Full code Quality Stroke Does the patient have a stroke diagnosis?: No VTE Prior VTE?: No VTE Risk Level:: Medical - moderate - high VTE Device Contraindication: Treatment Not Indicated VTE Drug Contraindication: N/A - Med Ordered
[2024-08-08 08:50] VITALS: TEMP 38.4
[2024-08-08] MEDS: Docusate Sodium 100 MG CAPSULE PO ×2 (09:19→22:37)
[2024-08-08] MEDS: Atorvastatin Calcium 20 MG TABLET PO (09:19)
[2024-08-08] MEDS: PARoxetine HCL 20 MG TABLET PO (09:19)
[2024-08-08] MEDS: Famotidine 20 MG TABLET PO (09:19)
[2024-08-08 09:20] VITALS: BP 103/55; PULSE 83
[2024-08-08] MEDS: Metoprolol Succinate ER 25 MG TAB.ER.24H PO (09:20)
[2024-08-08] MEDS: 0.9 % Sodium Chloride Flush 3 ML SYRINGE IVFLUSH (09:24)
[2024-08-08 09:42] LABS: Hematocrit 35.9 % (37.0-47.0); Hemoglobin 11.8 g/dl (12.0-16.0); Mean Corpuscular HGB Conc 32.9 g/dl (31.0-35.0); Mean Corpuscular Hemoglobin 30.3 pg (27.0-33.0); Mean Corpuscular Volume 92.3 fL (80.0-98.0); Mean Platelet Volume 11.3 fL (9.4-12.3); Platelet Count 209 X10*3/uL (160-400); Red Blood Count 3.89 X10*6/uL (4.20-5.50); Red Cell Distribution Width 14.4 % (11.0-16.0); White Blood Count 4.8 X10*3/uL (4.8-10.8)
[2024-08-08 09:56] LABS: Lactic Acid 0.9 mmol/L (0.5-2.0)
[2024-08-08 09:57] LABS: Alanine Aminotransferase 126 U/L (0-31); Albumin Level 3.3 g/dL (3.5-5.0); Alkaline Phosphatase 130 U/L (39-117); Anion Gap 8 (12-20); Aspartate Amino Transferase 105 U/L (5-31); Bilirubin Direct 0.3 mg/dL (0.0-0.5); Bilirubin Total 0.7 mg/dL (0.0-1.0); Blood Urea Nitrogen 8 mg/dL (9-16); Calcium 8.6 mg/dL (8.4-10.2); Carbon Dioxide 29 mmol/L (22-29); Chloride 107 mmol/L (96-108); Creatinine Clr Calc Pharmacy 72.9; Estimated Glomerular Filt Rate > 60; Glucose Random 144 mg/dL (60-115); Lipase 10 U/L (8-78); Potassium 3.5 mmol/L (3.3-5.1); Sodium 140 mmol/L (135-145); Total Protein 5.8 g/dL (6.5-8.0)
[2024-08-08] MEDS: diphenhydrAMINE HCL 25 MG CAPSULE PO ×2 (10:47→22:37)
[2024-08-08 14:25] LABS: Appearance Urine Clear; Color Urine Yellow; Glucose Urine UA Negative (Negative); Leukocyte Esterase Urine Trace (Negative); Nitrite Urine Negative (Negative); Specific Gravity - Urine <= 1.005 (1.005-1.025); UMIC TRIGGER UACC YES; Urine Blood Negative (Negative); Urine Ketones Negative (Negative); Urine Protein Negative (Neg-Trace)
[2024-08-08 14:27] LABS: Bacteria Urine None Seen (None Seen); Hyaline Casts Urine 0-2 /LPF (0-2); RBC Urine 0-2 /HPF (0-2); WBC Urine 0-5 /HPF (0-5)
[2024-08-08 15:00] LABS: Adenovirus PCR Not Detected (Not Detect.); Bordetella parapertussis PCR Not Detected (Not Detect.); Bordetella pertussis PCR Not Detected (Not Detect.); Chlamydia pneumoniae PCR Not Detected (Not Detect.); Coronavirus 229E PCR Not Detected (Not Detect.); Coronavirus HKU1 PCR Not Detected (Not Detect.); Coronavirus NL63 PCR Not Detected (Not Detect.); Coronavirus OC43 PCR Not Detected (Not Detect.); Human metapneumovirus PCR Not Detected (Not Detect.); Influenza A PCR Not Detected (Not Detect.); Influenza B PCR Not Detected (Not Detect.); Mycoplasma pneumoniae PCR Not Detected (Not Detect.); Parainfluenza 1 PCR Not Detected (Not Detect.); Parainfluenza 2 PCR Not Detected (Not Detect.); Parainfluenza 3 PCR Not Detected (Not Detect.); Parainfluenza 4 PCR Not Detected (Not Detect.); RSV PCR Not Detected (Not Detect.); Rhino/Enterovirus PCR Not Detected (Not Detect.)
[2024-08-08 15:07] VITALS: BP 110/57; PULSE 58; RESP 16; TEMP 36.4; O2SAT 95
[2024-08-08 15:14] LABS: Influenza A H1 PCR Not Detected (Not Detect.); Influenza A H1-2009 PCR Not Detected (Not Detect.); Influenza A H3 PCR Not Detected (Not Detect.); SARS-CoV-2 PCR Not Detected (Not Detect.)
--- NOTE | 2024-08-08 15:46 | MHC.CM.PN ---
pt not medically ready for dc dc plamn remains for home
--- NOTE | 2024-08-08 16:46 | P.PNGI_ITS ---
Subjective Subjective Date of Service: 08/08/24 Interval History: no nausea or vomiting Critical Care Time (minutes): 0 Physical Exam 2 Vital Signs: Vital Signs: Last Vital Signs Temp 97.6 F 08/08/24 15:07 Pulse 58 08/08/24 15:07 Resp 16 08/08/24 15:07 BP 110/57 L 08/08/24 15:07 Pulse Ox 95 08/08/24 15:07 O2 Del Method Room Air 08/08/24 15:07 BMI result Body Mass Index 39.0 GI: Other: abdomen is soft and nontender Objective Data Labs 08/08/24 09:34 08/08/24 09:34 Labs: Laboratory Results - last 24 hr 08/08/24 08/08/24 08/08/24 09:34 10:45 14:10 WBC 4.8 RBC 3.89 L Hgb 11.8 L Hct 35.9 L MCV 92.3 MCH 30.3 MCHC 32.9 RDW 14.4 Plt Count 209 MPV 11.3 Absolute Nucleated RBC 0.000 Nucleated RBC % (auto) 0.0 Sodium 140 Potassium 3.5 Chloride 107 Carbon Dioxide 29 Anion Gap 8 L BUN 8 L Creatinine 0.70 Estim Creat Clear Calc 72.9 Estimated GFR > 60 Random Glucose 144 H Lactic Acid 0.9 Calcium 8.6 Total Bilirubin 0.7 Direct Bilirubin 0.3 AST 105 H ALT 126 H Alkaline Phosphatase 130 H Total Protein 5.8 L Albumin 3.3 L Lipase 10 Urine Color Yellow Urine Appearance Clear Urine pH 6.0 Ur Specific [place] <= 1.005 Urine Protein Negative Urine Glucose (UA) Negative Urine Ketones Negative Urine Blood Negative Urine Nitrite Negative Ur Leukocyte Esterase Trace H Urine RBC 0-2 Urine WBC 0-5 Ur Squamous Epith Cells 3-5 Urine Bacteria None Seen Hyaline Casts 0-2 Respiratory Panel Moise See Note Adenovirus (Rapid PCR) Not Detected B.pert (TEM-PCR) Not Detected B.parapertussis DNA PCR Not Detected C. pneumoniae DNA (PCR) Not Detected Coronavirus OC43 (PCR) Not Detected Coronavirus HKU1 (PCR) Not Detected Coronavirus 229E (PCR) Not Detected Coronavirus NL63 (PCR) Not Detected Human Metapneumovir PCR Not Detected Influenza A (RT-PCR) Not Detected Influenza A (H1) PCR Not Detected Influ A (H1/09) PCR Not Detected Influenza A (H3) PCR Not Detected Influenza B (RT-PCR) Not Detected M. pneumoniae (PCR) Not Detected Parainfluenza 1 (PCR) Not Detected Parainfluenza 2 (PCR) Not Detected Parainfluenza 3 (PCR) Not Detected Parainfluenza 4 (PCR) Not Detected RSV (PCR) Not Detected Entero/Rhino (PCR) Not Detected SARS-CoV-2 RNA (RT-PCR) Not Detected Microbiology Microbiology Results: Microbiology 08/07/24 00:09 Blood - Venous Blood Culture - Preliminary No growth after 24 hours. 08/07/24 00:10 Blood - Venous Blood Culture - Preliminary No growth after 24 hours. Procedures Date of Service Date of Service: 08/08/24 Progress Note: A&P Assessment and plan (1) Pancreatitis: Status: Acute Assessment and Plan: continue present management d/c hctz diet as tolerated. Time Spent With Patient Time: Total time managing care of this patient today ____ minutes. Quality Stroke Does the patient have a stroke diagnosis?: No VTE Prior VTE?: No VTE Risk Level:: Medical - moderate - high VTE Device Contraindication: Treatment Not Indicated VTE Drug Contraindication: N/A - Med Ordered
[2024-08-08 19:01] VITALS: BP 129/71; PULSE 62; RESP 16; TEMP 36.7; O2SAT 97
[2024-08-08] MEDS: Melatonin 3 MG TABLET 6 MG PO (22:37)
[2024-08-08] MEDS: Sennosides 8.6 MG TABLET 17.2 MG PO (22:37)
[2024-08-09] MEDS: Heparin Sodium,Porcine 5,000 UNIT/ML VIAL 5000 UNIT SUBCUT ×3 (00:07→16:42)
[2024-08-09 04:00] VITALS: BP 115/57; PULSE 56; RESP 16; TEMP 36.2; O2SAT 93
[2024-08-09] MEDS: Omeprazole 20 MG CAPSULE.DR PO (06:36)
[2024-08-09 07:12] VITALS: BP 107/52; PULSE 55; RESP 16; TEMP 36.3; O2SAT 94
[2024-08-09 09:12] LABS: Alanine Aminotransferase 94 U/L (0-31); Albumin Level 3.2 g/dL (3.5-5.0); Alkaline Phosphatase 126 U/L (39-117); Aspartate Amino Transferase 60 U/L (5-31); Bilirubin Direct 0.3 mg/dL (0.0-0.5); Bilirubin Total 0.6 mg/dL (0.0-1.0); Total Protein 5.7 g/dL (6.5-8.0)
[2024-08-09 10:39] VITALS: BP 130/94; PULSE 70
[2024-08-09] MEDS: Metoprolol Succinate ER 25 MG TAB.ER.24H PO (10:39)
[2024-08-09] MEDS: Docusate Sodium 100 MG CAPSULE PO (10:39)
[2024-08-09] MEDS: Famotidine 20 MG TABLET PO (10:39)
[2024-08-09] MEDS: Atorvastatin Calcium 20 MG TABLET PO (10:39)
[2024-08-09] MEDS: PARoxetine HCL 20 MG TABLET PO (10:40)
[2024-08-09] MEDS: 0.9 % Sodium Chloride Flush 3 ML SYRINGE IVFLUSH ×3 (10:40→21:06)
--- NOTE | 2024-08-09 10:48 | MHC.CM.PN ---
Per MD rounds patient may be ready to discharge home tomorrow. Her diet will be advanced today. She may need assist with transportation.
[2024-08-09] MEDS: HYDROmorphone HCl 0.5 MG/0.5 ML SYRINGE IVPUSH (10:58)
--- NOTE | 2024-08-09 14:41 | P.PNIM_ITS ---
Subjective Subjective Date of Service: 08/09/24 Interval History: seen and examined this morning follow up for pancreatitis persistent episgastric pain although slowly improving tolerating liquids Review of Systems Review of Systems: Yes all other systems are reviewed and are negative Constitutional Constitutional: Denies chills and Denies fever(s) Cardiovascular Cardiovascular: Denies chest pain and Denies claudication Gastrointestinal Gastrointestinal: Reports abdominal pain Physical Exam 2 Vital Signs: Vital Signs: Last Vital Signs Temp 97.3 F 08/09/24 07:12 Pulse 70 08/09/24 10:39 Resp 16 08/09/24 07:12 BP 130/94 H 08/09/24 10:39 Pulse Ox 94 08/09/24 07:12 O2 Del Method Room Air 08/09/24 07:12 BMI result Body Mass Index 39.0 Const: General: cooperative, alert and awake Nutritional Appearance: obese Orientation/consciousness: patient oriented x3 Resp: Effort & Inspection: normal respiratory effort, able to speak in complete sentences, no respiratory distress and no use of accessory muscles Cardio: Rate: regular rate GI: Palpation (GI): Soft to palpation Neuro: General: patient oriented x3 and moves all extremities Objective Data Active Medications Atorvastatin Calcium (Atorvastatin Calcium 20 Mg Tablet) 20 mg PO DAILY [facility] Last Admin: 08/09/24 10:39 Dose: 20 mg Documented By: CLEM Calcium Carbonate (Calcium Carbonate 750 Mg Tab.Chew) 750 mg PO Q4H PRN PRN Reason: Heartburn Diphenhydramine HCl (Diphenhydramine Hcl 25 Mg Capsule) 25 mg PO Q6H PRN PRN Reason: Itching Last Admin: 08/08/24 22:37 Dose: 25 mg Documented By: SCOTTIE Docusate Sodium (Docusate Sodium 100 Mg Capsule) 100 mg PO BID [facility] Last Admin: 08/09/24 10:39 Dose: 100 mg Documented By: CLEM Famotidine (Famotidine 20 Mg Tablet) 20 mg PO DAILY [facility] Last Admin: 08/09/24 10:39 Dose: 20 mg Documented By: CLEM Heparin Sodium (Porcine) (Heparin Sodium,Porcine 5,000 Unit/Ml Vial) 5,000 unit SUBCUT Q8H [facility] Last Admin: 08/09/24 10:40 Dose: 5,000 unit Documented By: CLEM Hydromorphone HCl (Hydromorphone Hcl 0.5 Mg/0.5 Ml Syringe) 0.5 mg IVPUSH Q4H PRN; Protocol PRN Reason: Breakthrough Pain Last Admin: 08/09/24 10:58 Dose: 0.5 mg Documented By: CLEM Magnesium Hydroxide (Milk Of Magnesia 30 Ml Oral.Susp) 30 ml PO DAILY PRN PRN Reason: Constipation Melatonin (Melatonin 3 Mg Tablet) 6 mg PO BEDTIME PRN PRN Reason: Insomnia Last Admin: 08/08/24 22:37 Dose: 6 mg Documented By: SCOTTIE Metoprolol Succinate (Metoprolol Succinate Er 25 Mg Tab.Er.24h) 25 mg PO DAILY [facility]; Protocol Last Admin: 08/09/24 10:39 Dose: 25 mg Documented By: CLEM Omeprazole (Omeprazole 20 Mg Capsule.Dr) 20 mg PO DAILY@0630 [facility] Last Admin: 08/09/24 06:36 Dose: 20 mg Documented By: SCOTTIE Paroxetine HCl (Paroxetine Hcl 20 Mg Tablet) 20 mg PO DAILY [facility] Last Admin: 08/09/24 10:40 Dose: 20 mg Documented By: CLEM Senna (Sennosides 8.6 Mg Tablet) 17.2 mg PO BEDTIME [facility] Last Admin: 08/08/24 22:37 Dose: 17.2 mg Documented By: SCOTTIE Sodium Chloride (0.9 % Sodium Chloride Flush 3 Ml Syringe) 3 ml IVFLUSH QSHIFT [facility] Last Admin: 08/09/24 10:40 Dose: 3 ml Documented By: CLEM Labs 08/08/24 09:34 08/08/24 09:34 Labs: Laboratory Results - last 24 hr 08/08/24 08/09/24 10:45 08:11 Total Bilirubin 0.6 Direct Bilirubin 0.3 AST 60 H ALT 94 H Alkaline Phosphatase 126 H Total Protein 5.7 L Albumin 3.2 L Respiratory Panel Moise See Note Adenovirus (Rapid PCR) Not Detected B.pert (TEM-PCR) Not Detected B.parapertussis DNA PCR Not Detected C. pneumoniae DNA (PCR) Not Detected Coronavirus OC43 (PCR) Not Detected Coronavirus HKU1 (PCR) Not Detected Coronavirus 229E (PCR) Not Detected Coronavirus NL63 (PCR) Not Detected Human Metapneumovir PCR Not Detected Influenza A (RT-PCR) Not Detected Influenza A (H1) PCR Not Detected Influ A (H1/09) PCR Not Detected Influenza A (H3) PCR Not Detected Influenza B (RT-PCR) Not Detected M. pneumoniae (PCR) Not Detected Parainfluenza 1 (PCR) Not Detected Parainfluenza 2 (PCR) Not Detected Parainfluenza 3 (PCR) Not Detected Parainfluenza 4 (PCR) Not Detected RSV (PCR) Not Detected Entero/Rhino (PCR) Not Detected SARS-CoV-2 RNA (RT-PCR) Not Detected Microbiology Microbiology Results: Microbiology 08/07/24 00:10 Blood Culture - Preliminary Blood - Venous No growth after 48 hours. 08/07/24 00:09 Blood Culture - Preliminary Blood - Venous No growth after 48 hours. Assessment and Plan (1) Pancreatitis: Status: Acute Plan 69-year-old female with a past medical history of HTN, HLD, anxiety, depression presented to the hospital today with a chief complaint of abdominal pain found to have acute pancreatitis. Fever Isolated Fever 4/9, no recurrance infectious work up negative likely reactive from pancreatitis, no sepsis Acute pancreatitis Patient denies any alcohol use. Patient has prior history of cholecystectomy. No biliary ductal dilatation on the current CT scan. Abdominal MRI showing acute interstitial pancreatitis, hepatic steatosis with no evidence of choledocholithiasis Lipid panel wnl Pain control advance diet as tolerated GI consult> treat symptomatically, stop HCTZ Transaminitis hepatitis panel neg trending down Hypertension Continue home metoprolol stop HCTZ for pancreatitis as above bp controlled DVT prophylaxis: SubQ heparin Code status: Full code Quality Stroke Does the patient have a stroke diagnosis?: No VTE Prior VTE?: No VTE Risk Level:: Medical - moderate - high VTE Device Contraindication: Treatment Not Indicated VTE Drug Contraindication: N/A - Med Ordered
[2024-08-09 15:49] VITALS: BP 131/62; PULSE 51; RESP 18; TEMP 36.2; O2SAT 99
[2024-08-09 19:40] VITALS: BP 122/60; PULSE 59; RESP 20; TEMP 36.3; O2SAT 95
[2024-08-09] MEDS: Melatonin 3 MG TABLET 6 MG PO (21:05)
[2024-08-10] MEDS: Heparin Sodium,Porcine 5,000 UNIT/ML VIAL 5000 UNIT SUBCUT ×3 (01:49→17:17)
[2024-08-10 03:31] VITALS: BP 120/58; PULSE 53; RESP 16; TEMP 36.8; O2SAT 93
[2024-08-10] MEDS: Omeprazole 20 MG CAPSULE.DR PO (06:08)
[2024-08-10] MEDS: Metoprolol Succinate ER 25 MG TAB.ER.24H PO (07:31)
[2024-08-10] MEDS: Famotidine 20 MG TABLET PO (07:32)
[2024-08-10] MEDS: Docusate Sodium 100 MG CAPSULE PO ×2 (07:32→21:28)
[2024-08-10] MEDS: PARoxetine HCL 20 MG TABLET PO (07:32)
[2024-08-10] MEDS: Atorvastatin Calcium 20 MG TABLET PO (07:32)
[2024-08-10 07:41] VITALS: BP 124/58; PULSE 60; RESP 16; TEMP 36.5; O2SAT 94
[2024-08-10] MEDS: oxyCODONE HCl Immed Release 5 MG TABLET PO ×2 (10:10→13:36)
[2024-08-10] MEDS: ondansetron HCL 4 MG/2 ML VIAL IVPUSH (13:36)
--- NOTE | 2024-08-10 14:11 | HO.PM.IMPN ---
Subjective Subjective Date of Service: 08/10/24 Interval History: Seen and examined this morning follow-up for acute pancreatitis Physical Exam Vital Signs: Vital Signs: Last Vital Signs Temp 97.7 F 08/10/24 07:41 Pulse 60 08/10/24 07:41 Resp 16 08/10/24 07:41 BP 124/58 L 08/10/24 07:41 Pulse Ox 94 08/10/24 07:41 O2 Del Method Room Air 08/10/24 07:41 BMI result Body Mass Index 39.0 Const: General: cooperative, alert and awake Nutritional Appearance: obese Orientation/consciousness: patient oriented x3 Resp: Effort & Inspection: normal respiratory effort, able to speak in complete sentences, no respiratory distress and no use of accessory muscles Cardio: Rate: regular rate GI: Palpation (GI): Soft to palpation Neuro: General: patient oriented x3 and moves all extremities Objective Data Active Medications Atorvastatin Calcium (Atorvastatin Calcium 20 Mg Tablet) 20 mg PO DAILY [facility] Last Admin: 08/10/24 07:32 Dose: 20 mg Documented By: DANISH Calcium Carbonate (Calcium Carbonate 750 Mg Tab.Chew) 750 mg PO Q4H PRN PRN Reason: Heartburn Diphenhydramine HCl (Diphenhydramine Hcl 25 Mg Capsule) 25 mg PO Q6H PRN PRN Reason: Itching Last Admin: 08/08/24 22:37 Dose: 25 mg Documented By: SCOTTIE Docusate Sodium (Docusate Sodium 100 Mg Capsule) 100 mg PO BID [facility] Last Admin: 08/10/24 07:32 Dose: 100 mg Documented By: DANISH Famotidine (Famotidine 20 Mg Tablet) 20 mg PO DAILY [facility] Last Admin: 08/10/24 07:32 Dose: 20 mg Documented By: DANISH Heparin Sodium (Porcine) (Heparin Sodium,Porcine 5,000 Unit/Ml Vial) 5,000 unit SUBCUT Q8H [facility] Last Admin: 08/10/24 07:31 Dose: 5,000 unit Documented By: DANISH Magnesium Hydroxide (Milk Of Magnesia 30 Ml Oral.Susp) 30 ml PO DAILY PRN PRN Reason: Constipation Melatonin (Melatonin 3 Mg Tablet) 6 mg PO BEDTIME PRN PRN Reason: Insomnia Last Admin: 08/09/24 21:05 Dose: 6 mg Documented By: HO.MCTR Metoprolol Succinate (Metoprolol Succinate Er 25 Mg Tab.Er.24h) 25 mg PO DAILY [facility]; Protocol Last Admin: 08/10/24 07:31 Dose: 25 mg Documented By: DANISH Omeprazole (Omeprazole 20 Mg Capsule.Dr) 20 mg PO DAILY@0630 [facility] Last Admin: 08/10/24 06:08 Dose: 20 mg Documented By: SCOTTIE Ondansetron HCl (Ondansetron Hcl 4 Mg/2 Ml Vial) 4 mg IVPUSH Q8H PRN PRN Reason: Nausea and Vomiting Last Admin: 08/10/24 13:36 Dose: 4 mg Documented By: DANISH Oxycodone HCl (Oxycodone Hcl Immed Release 5 Mg Tablet) 5 mg PO Q6H PRN PRN Reason: Pain, Moderate(Pain Scale 4-6) Last Admin: 08/10/24 13:36 Dose: 5 mg Documented By: DANISH Paroxetine HCl (Paroxetine Hcl 20 Mg Tablet) 20 mg PO DAILY [facility] Last Admin: 08/10/24 07:32 Dose: 20 mg Documented By: DANISH Senna (Sennosides 8.6 Mg Tablet) 17.2 mg PO BEDTIME [facility] Last Admin: 08/09/24 23:01 Dose: Not Given Documented By: SCOTTIE Non-Admin Reason: HAD LARGE LOOSE BM Sodium Chloride (0.9 % Sodium Chloride Flush 3 Ml Syringe) 3 ml IVFLUSH QSHIFT [facility] Last Admin: 08/10/24 07:32 Dose: Not Given Documented By: DANISH Non-Admin Reason: Previously Administered Labs 08/08/24 09:34 08/08/24 09:34 Assessment and Plan (1) Acute hypokalemia: Status: Acute Plan 69-year-old female with a past medical history of HTN, HLD, anxiety, depression presented to the hospital today with a chief complaint of abdominal pain found to have acute pancreatitis. Fever Isolated Fever 4/9, no recurrance infectious work up negative likely reactive from pancreatitis, no sepsis Acute pancreatitis no alcohol use, h/o prior history of cholecystectomy. No biliary ductal dilatation on imaging Abdominal MRI showing acute interstitial pancreatitis, hepatic steatosis with no evidence of choledocholithiasis TG 56 seen by GI consult - rec to stop HCTZ imaging showing Tiny 8 mm probable IPM and in the pancreatic head. Follow-up is recommended. trial of diet advancement, patient vomited after eating Transaminitis hepatitis panel neg trending down Hypertension Continue home metoprolol stop HCTZ for pancreatitis as above bp controlled DVT prophylaxis: SubQ heparin Code status: Full code Quality Stroke Does the patient have a stroke diagnosis?: No VTE Prior VTE?: No VTE Risk Level:: Medical - moderate - high VTE Device Contraindication: Treatment Not Indicated VTE Drug Contraindication: N/A - Med Ordered
[2024-08-10 15:20] VITALS: BP 122/74; PULSE 58; RESP 17; TEMP 36.6; O2SAT 96
[2024-08-10] MEDS: 0.9 % Sodium Chloride Flush 3 ML SYRINGE IVFLUSH (17:18)
[2024-08-10 19:40] VITALS: BP 121/76; PULSE 59; RESP 18; TEMP 36.3; O2SAT 98
[2024-08-10] MEDS: Melatonin 3 MG TABLET 6 MG PO (21:28)
[2024-08-10] MEDS: Sennosides 8.6 MG TABLET 17.2 MG PO (21:28)
[2024-08-11] MEDS: 0.9 % Sodium Chloride Flush 3 ML SYRINGE IVFLUSH ×2 (00:59→08:40)
[2024-08-11] MEDS: Heparin Sodium,Porcine 5,000 UNIT/ML VIAL 5000 UNIT SUBCUT ×2 (00:59→08:39)
[2024-08-11 03:11] VITALS: BP 133/61; PULSE 53; RESP 18; TEMP 36.7; O2SAT 93
[2024-08-11] MEDS: Omeprazole 20 MG CAPSULE.DR PO (05:42)
[2024-08-11 07:21] VITALS: BP 110/61; PULSE 60; RESP 18; TEMP 36.7; O2SAT 93
[2024-08-11 08:07] LABS: Anion Gap 10 (12-20); Blood Urea Nitrogen 8 mg/dL (9-16); Calcium 8.8 mg/dL (8.4-10.2); Carbon Dioxide 28 mmol/L (22-29); Chloride 109 mmol/L (96-108); Creatinine Clr Calc Pharmacy 82.4; Estimated Glomerular Filt Rate > 60; Glucose Random 112 mg/dL (60-115); Potassium 3.3 mmol/L (3.3-5.1); Sodium 144 mmol/L (135-145)
[2024-08-11] MEDS: Docusate Sodium 100 MG CAPSULE PO (08:39)
[2024-08-11] MEDS: PARoxetine HCL 20 MG TABLET PO (08:39)
[2024-08-11] MEDS: Atorvastatin Calcium 20 MG TABLET PO (08:39)
[2024-08-11] MEDS: Famotidine 20 MG TABLET PO (08:39)
[2024-08-11] MEDS: Metoprolol Succinate ER 25 MG TAB.ER.24H PO (08:39)
--- NOTE | 2024-08-11 08:44 | PC.NURSE ---
d/c camera in 344. contract for safety, plan d/c aaron oden.
--- NOTE | 2024-08-11 09:24 | P.DS_ITS ---
DS: Providers Provider Date of Service: 08/11/24 Date of admission: 08/06/24 23:31 Date of discharge: 08/11/24 Primary care physician: Lesa Ivey Consults: 08/06/24 23:30 Consult to Gastroenterology Routine Consulting Provider: Daquan Li Reason for consultation: pancreatitis DS: Diagnosis Discharge Diagnosis (1) Acute hypokalemia: Status: Acute DS: Summary Hospital Course Hospital Course: History and physical as per admitting provider. 69-year-old female with a past medical history of HTN, HLD, anxiety, depression presented to the hospital today with a chief complaint of abdominal pain. Patient reported that since yesterday she has been having abdominal pain, starts around the back and radiates to the front to the epigastrium. Has been having nausea and vomiting. Denies any diarrhea. Reports she has had an episode of fever yesterday. Patient denies any chest pain or palpitations at the time of my interview. Denies any urinary symptoms. Reports that she has abdominal pain but slightly better than yesterday. Denies any numbness tingling or focal weakness. Review of all other systems is negative except mentioned above denies any toxic habits except for a very occasional alcohol use. Denies any recent alcohol use. ER course: Per ER team, patient noted epigastric tenderness; lipase is normal limits; CT abdomen pelvis shows findings concerning for pancreatitis. Also noted a slightly elevated liver enzymes. Acute pancreatitis, possibly secondary to hydrochlorothiazide. No alcohol use, prior history of cholecystectomy, no biliary ductal dilatation on imaging, abdominal MRI showing acute interstitial pancreatitis, hepatic steatosis with no evidence of choledocholithiasis, negative lipase, triglycerides 56. Seen and evaluated by Gastroenterology with recommendation to stop hydrochlorothiazide. Outpatient follow-up for 8 mm probable IPMN in the pancreatic head recommended. Diet advanced, patient did have some vomiting with eating but today she was able to tolerate solid diet. Plan is to discharge home. Fever. Isolated, 08/11, no recurrence. Infectious workup negative. Transaminitis. Negative hepatitis panel. Trended down Hypertension. Hydrochlorothiazide stopped secondary to pancreatitis. Continue metoprolol Time Attestation Discharge Coordination Time (in mins): 45 Quality: Safe Use of Opioids Does Pt have an Active Cancer Diagnosis on the Problem List?: No Quality: Stroke Does the patient have a stroke diagnosis?: No Physical Exam Vital Signs: Vital Signs: Last Vital Signs Temp 98.0 F 08/11/24 07:21 Pulse 60 08/11/24 07:21 Resp 18 08/11/24 07:21 BP 110/61 08/11/24 07:21 Pulse Ox 93 08/11/24 07:21 O2 Del Method Room Air 08/11/24 07:21 BMI result Body Mass Index 39.0 Appearing in no acute distress head is normocephalic atraumatic eyes pupils are PERRLA sclera is anicteric mouth throat mucous membranes are intact and moist neck is supple no lymphadenopathy, no JVD noted lung sounds are clear to auscultation heart regular rate rhythm, clear S1, S2 positive bowel sounds, abdomen is soft, nontender neuro patient is alert x3, no focal deficits DS: Data Data Completed and Pending Labs on day of discharge: Laboratory Results - last 24 hr 08/11/24 07:46 Hold Purple Top SEE NOTE Sodium 144 Potassium 3.3 Chloride 109 H Carbon Dioxide 28 Anion Gap 10 L BUN 8 L Creatinine 0.62 Estim Creat Clear Calc 82.4 Estimated GFR > 60 Random Glucose 112 Calcium 8.8 Preliminary micro results at discharge 08/07/24 00:10 Blood Culture - Preliminary Blood - Venous No growth after 48 hours. 08/07/24 00:09 Blood Culture - Preliminary Blood - Venous No growth after 48 hours. Discharge Plan Discharge Anticipated Discharge Date/Time: 08/11/24 09:16 Patient Disposition: Home, Self-Care Discharge Diagnosis: Acute pancreatitis Referrals: Lesa Ivey [Other] - 1 Week Discharge Medications: Continued meloxicam 15 mg tablet 15 mg PO DAILY PRN (Reason: pain) paroxetine HCl 20 mg tablet 20 mg PO DAILY gabapentin 100 mg capsule 100 mg PO DAILY PRN (Reason: pain) metoprolol succinate 25 mg tablet extended release 24 hr 25 mg PO DAILY atorvastatin 20 mg Tablet 20 mg PO DAILY famotidine 20 mg Tablet 20 mg PO DAILY omeprazole 20 mg Capsule,Delayed Release(Dr/Ec) 20 mg PO DAILY@0630 Discharge Orders: Discharge Order (Routine); Ordered 08/11/24 Ordered By: Debra Graham Diet: Advance to usual diet Activity on Discharge: As tolerated Stand Alone Forms: Patient Portal Discharge page Print Language: Thai Care Plan Goals: Continue bland diet Hydrochlorothiazide stopped Health Concerns: Acute pancreatitis Plan of Treatment: Follow-up with primary care provider as needed Take all medications as prescribed Assessment: See discharge summary
--- NOTE | 2024-08-11 12:02 | MHC.CM.PN ---
Addendum entered by Gila Manzano 08/11/24 14:50: CM MET WITH PT TO DISCUSS DC PLANS SHE REPORTS HER BROTHER WILL BE PICKING HER UP SHE STATES SHE WILL BE RETURNING TO [place] AND HOPES TO BRING HER MOTHER AND ASKS WHO COULD HELP MAKE SURE HER BROTHER ALLOWS THAT SHE WAS ENCOURAGED TO CALL PTS PCP TO DETERMINE IF HER MOTHER HAS A HCP AND UNDERSTANDS IF SHE DOES, THAT PERSON WOULD BE THE DECISION MAKER SHE ALSO UNDERSTANDS IF THERE IS NO HCP, SHE WOULD NEED TO FILE FOR [employer] TO BE HER MOTHERS DECISION MAKER Original Note: PT WILL DC TODAY WITH NO SERVICES
[2024-08-11 14:54] VITALS: BP 129/60; PULSE 63; RESP 18; TEMP 36.3; O2SAT 95
== END 2024-08-11 15:18 | disposition home or self-care (01) | DRG 440 ==
LOC: HO.ED 23:03 → HO.EDOVER 23:35 → HO.S3 08-07 07:17
PROVIDERS: Physician Assistant; Physician Assistant Medical; Admitting Provider Hospitalist; Emergency Provider Emergency Medicine Emergency Medical Services; Visit Provider Nurse Practitioner Acute Care
DX: K85.30 Drug induced acute pancreatitis without necrosis or infection (principal); T50.2X5A Adverse effect of carbonic-anhydrase inhibitors, benzothiadiazides and other diuretics, initial encounter; E87.6 Hypokalemia; R50.9 Fever, unspecified; I10 Essential (primary) hypertension; E78.5 Hyperlipidemia, unspecified; K76.0 Fatty (change of) liver, not elsewhere classified; Z20.822 Contact with and (suspected) exposure to COVID-19; Z79.899 Other long term (current) drug therapy
CPT/HCPCS: 36415; 71045; 74176; 74183; 80048; 80053; 80061; 80076; 81001; 81003; 83605; 83690; 83735; 84484; 85025; 85027; 85610; 85730; 86704; 86706; 86709; 86803; 87040; 87340; 87633; 93005; 99285; A9585; J0696; J1171; J1644; J1836; J2270; J2405

== ENCOUNTER → 2024-08-06 13:15 | Outpatient (BNV) | payer SELFPAY | PROVIDERS: Emergency Provider Emergency Medicine Emergency Medical Services; Visit Provider Internal Medicine Cardiovascular Disease | DX: R10.9 Unspecified abdominal pain (principal) | CPT/HCPCS: 93010 ==

== ENCOUNTER → 2024-08-06 17:32 | Outpatient (BNV) | payer SELFPAY | PROVIDERS: Emergency Provider Emergency Medicine Emergency Medical Services; Visit Provider Radiology Diagnostic Radiology | DX: K86.89 Other specified diseases of pancreas (principal) | CPT/HCPCS: 74176 ==

== ENCOUNTER 2024-08-06 23:31 | Outpatient (BNV) | payer MEDICARE, SELFPAY | END 2024-08-08 09:35 | PROVIDERS: Admitting Provider Hospitalist; Emergency Provider Emergency Medicine Emergency Medical Services; Visit Provider Radiology Diagnostic Radiology | DX: R50.9 Fever, unspecified (principal); R09.02 Hypoxemia; K85.90 Acute pancreatitis without necrosis or infection, unspecified | CPT/HCPCS: 71045 ==

== ENCOUNTER 2024-08-06 23:31 | Outpatient (BNV) | payer MEDICARE, SELFPAY | END 2024-08-07 11:34 | PROVIDERS: Admitting Provider Hospitalist; Emergency Provider Emergency Medicine Emergency Medical Services; Visit Provider Radiology Diagnostic Radiology | DX: K76.0 Fatty (change of) liver, not elsewhere classified (principal) | CPT/HCPCS: 74183 ==

== ENCOUNTER → 2024-08-06 23:31 | Outpatient (BNV) | payer MEDICARE, SELFPAY | PROVIDERS: Admitting Provider Hospitalist; Emergency Provider Emergency Medicine Emergency Medical Services; Visit Provider Nurse Practitioner Acute Care | DX: E87.6 Hypokalemia (principal) | CPT/HCPCS: 99232; 99239 ==